=== PATIENT | female | born 1950 | race Two or more races ===

== ENCOUNTER 2018-07-14 08:06 | Outpatient (CLI) | payer OTHER | END 2018-07-14 08:17 | disposition home or self-care (01) | LOC: MAMO-SONO 08:06 | DX: Z12.31 Encounter for screening mammogram for malignant neoplasm of breast (principal); Z87.898 Personal history of other specified conditions; N60.12 Diffuse cystic mastopathy of left breast ==

== ENCOUNTER 2019-07-31 08:39 | Outpatient (CLI) | payer OTHER | END 2019-07-31 08:43 | disposition home or self-care (01) | LOC: MAMO-SONO 08:39 | DX: R92.0 Mammographic microcalcification found on diagnostic imaging of breast (principal); Z12.31 Encounter for screening mammogram for malignant neoplasm of breast ==

== ENCOUNTER 2020-08-18 08:44 | Outpatient (CLI) | payer OTHER | END 2020-08-18 08:49 | disposition home or self-care (01) | LOC: MAMO-SONO 08:44 | PROVIDERS: ATTEND Specialist | DX: Z12.31 Encounter for screening mammogram for malignant neoplasm of breast (principal); N60.11 Diffuse cystic mastopathy of right breast; N60.12 Diffuse cystic mastopathy of left breast ==

== ENCOUNTER 2021-09-19 07:24 | Outpatient (CLI) | payer OTHER | END 2021-09-19 07:33 | disposition home or self-care (01) | LOC: MAMO-SONO 07:24 | PROVIDERS: ATTEND Specialist | DX: R92.0 Mammographic microcalcification found on diagnostic imaging of breast (principal) ==

== ENCOUNTER 2022-05-07 10:00 | Emergency (ER) | payer OTHER ==
[~2022-05-07] VITALS: Ht 157.5 cm; Wt 62.6 kg
[2022-05-07] MEDS ORDERED: METFORMIN HCL500 MG (10:22)
[2022-05-07] MEDS ORDERED: AVAPRO300 MG PO (10:23)
[2022-05-07] MEDS ORDERED: NORFLEX100MG PO (15:11)
[2022-05-07] MEDS ORDERED: KETO10TA2 PO (15:11)
== END 2022-05-07 15:29 | disposition home or self-care (01) ==
LOC: ER 10:00
DX: M25.512 Pain in left shoulder (principal); E11.9 Type 2 diabetes mellitus without complications; Z79.84 Long term (current) use of oral hypoglycemic drugs; I10 Essential (primary) hypertension; M71.9 Bursopathy, unspecified

== ENCOUNTER 2022-09-21 09:14 | Outpatient (CLI) | payer OTHER ==
[~2022-09-21 09:14] MED LIST: AVAPRO300 MG PO; KETO10TA2 PO; METFORMIN HCL500 MG; NORFLEX100MG PO
== END 2022-09-21 09:21 | disposition home or self-care (01) ==
LOC: MAMO-SONO 09:14
PROVIDERS: ATTEND Specialist
DX: R92.0 Mammographic microcalcification found on diagnostic imaging of breast (principal)

== ENCOUNTER 2023-01-02 08:30 | Emergency (ER) | payer OTHER ==
[~2023-01-02] VITALS: Ht 157.5 cm; Wt 61.2 kg
[2023-01-02] MEDS ORDERED: KETO10TA2 PO (11:53)
== END 2023-01-02 12:10 | disposition home or self-care (01) ==
LOC: ER 08:30
DX: S70.11XA Contusion of right thigh, initial encounter (principal); W01.0XXA Fall on same level from slipping, tripping and stumbling without subsequent striking against object, initial encounter; Y93.89 Activity, other specified; Y92.018 Other place in single-family (private) house as the place of occurrence of the external cause; Z91.018 Allergy to other foods; E11.9 Type 2 diabetes mellitus without complications; Z79.84 Long term (current) use of oral hypoglycemic drugs; I10 Essential (primary) hypertension

== ENCOUNTER 2023-09-25 09:21 | Outpatient (CLI) | payer OTHER | END 2023-09-25 09:32 | disposition home or self-care (01) | LOC: MAMO-SONO 09:21 | DX: N60.11 Diffuse cystic mastopathy of right breast (principal); N60.12 Diffuse cystic mastopathy of left breast; Z12.31 Encounter for screening mammogram for malignant neoplasm of breast ==

== ENCOUNTER 2024-10-20 09:45 | Outpatient (CLI) | payer OTHER | END 2024-10-20 09:52 | disposition home or self-care (01) | LOC: MAMO-SONO 09:45 | PROVIDERS: ATTEND Specialist | DX: R92.1 Mammographic calcification found on diagnostic imaging of breast (principal); Z12.31 Encounter for screening mammogram for malignant neoplasm of breast ==